=== PATIENT | female | born 1980 | race Caucasian/White ===

== ENCOUNTER 2017-10-20 12:50 | Inpatient (IN) | payer OTHER ==
[~2017-10-20] VITALS: Ht 160 cm; Wt 71.2 kg
[2017-10-20] MEDS ORDERED: BETAMETHASONE SOLUSPAN 6 MG/ML 5 ML VIAL IM ONE (13:15)
[2017-10-20] MEDS ORDERED: PREN1TAB80 PO (13:17)
[2017-10-20] MEDS ORDERED: CALC-1038 PO (13:18)
[2017-10-20] MEDS ORDERED: IRON18TA PO (13:18)
[2017-10-20 14:10] VITALS: BP 98/59
[2017-10-20] MEDS: RINGERS SOLUTION,LACTATED 1,000 ML IV SCH (14:55)
[2017-10-20 15:01] LABS: BASOPHILS % (AUTO) 0.8 % (0.0-2.0); EOSINOPHILS % (AUTO) 0.1 % (1.0-6.0); HEMATOCRIT 32.6 % (36-46); HEMOGLOBIN 11.4 g/dL (12.0-16.0); LYMPHOCYTES # (AUTO) 1.1 K/uL (1.0-4.8); LYMPHOCYTES % (AUTO) 18.9 % (22.0-44.0); MEAN CORPUSCULAR HEMOGLOBIN 31.1 pg (26.0-34.0); MEAN CORPUSCULAR HGB CONC 34.9 G/dL (31.0-37.0); MEAN CORPUSCULAR VOLUME 89 fL (80-100); MONOCYTES # (AUTO) 0.4 K/uL (0.1-1.0); MONOCYTES % (AUTO) 6.3 % (2.0-9.0); NEUTROPHILS # (AUTO) 4.2 K/uL (1.8-7.7); NEUTROPHILS % (AUTO) 73.9 % (40.0-70.0); PLATELET COUNT (AUTO)-OB 165 K/uL (150-450); RED BLOOD CELL COUNT(AUTO) 3.66 MIL/uL (4.00-5.20); RED CELL DISTRIBUTION WIDTH 13.9 % (11.5-14.5)
[2017-10-20 15:09] LABS: ANION GAP 11 mmol/L (8-16); CALCIUM, TOTAL 8.6 mg/dL (8.8-10.5); CARBON DIOXIDE 23 mmol/L (22-29); CHLORIDE 97 mmol/L (98-107); CREATININE 0.41 mg/dL (0.60-1.30); GLOMERULAR FILTR. RATE CALC > 60 mL/min (>60); GLUCOSE,RANDOM 87 mg/dL (70-110); POTASSIUM 3.8 mmol/L (3.5-5.1); SODIUM SERUM 131 mmol/L (136-145); UREA NITROGEN, BLOOD 5 mg/dL (7-18)
[2017-10-20 15:15] LABS: ALANINE AMINOTRANSFERASE 58 U/L (12-78); ALBUMIN 2.6 g/dL (3.4-5.0); ALKALINE PHOSPHATASE 115 U/L (46-116); ASPARTATE AMINOTRANSFERASE 42 U/L (15-37); BILIRUBIN,TOTAL 0.3 mg/dL (0.1-1.0); TOTAL PROTEIN, SERUM 6.3 g/dL (6.4-8.2); URIC ACID 3.4 mg/dL (2.6-7.2)
[2017-10-20] MEDS ORDERED: MAGNESIUM SULFATE 4 GM/WATER 100 ML IV ONE (16:00)
[2017-10-20] MEDS ORDERED: CALCIUM GLUCONATE 100 MG/ML 10 ML IVP PRN (16:15)
[2017-10-20] MEDS ORDERED: MAGNESIUM SULFATE 500 ML IV ONE (16:19)
[2017-10-20] MEDS ORDERED: MAGNESIUM SULFATE 500 ML IV SCH (16:30)
[2017-10-20] MEDS ORDERED: MAGNESIUM SULFATE 2 GM/WATER 50 ML IV ONE (16:30)
[2017-10-21] MEDS: RINGERS SOLUTION,LACTATED 1,000 ML IV SCH ×2 (03:25→11:22)
[2017-10-21] MEDS ORDERED: NIFEdipine 10 MG CAPSULE PO ONE (07:45)
[2017-10-21] MEDS ORDERED: BETAMETHASONE SOLUSPAN 6 MG/ML 5 ML VIAL IM ONE (08:40)
== END 2017-10-21 13:20 | disposition home or self-care (01) | DRG 781 ==
LOC: 4S 12:50 → OBSVTOIN 12:50
PROVIDERS: ADMIT Obstetrics & Gynecology; ATTEND Obstetrics & Gynecology
DX: O26.893 Other specified pregnancy related conditions, third trimester (principal); Z3A.34 34 weeks gestation of pregnancy; I95.9 Hypotension, unspecified
CPT/HCPCS: 84550; 96360; 96372; J0702; J3475; J7120

== ENCOUNTER 2019-12-11 17:15 | Observation (INO) | payer OTHER ==
[~2019-12-11] VITALS: Ht 157.5 cm; Wt 67.6 kg
[~2019-12-11 17:15] MED LIST: PREN1TAB80 PO
[2019-12-11] MEDS ORDERED: RINGERS SOLUTION,LACTATED 1,000 ML IV PRN (17:45)
[2019-12-11 18:19] VITALS: BP 100/57
== END 2019-12-11 20:20 | disposition home or self-care (01) ==
LOC: 4S 17:15
PROVIDERS: ADMIT Obstetrics & Gynecology; ATTEND Obstetrics & Gynecology
DX: O62.9 Abnormality of forces of labor, unspecified (principal); Z3A.36 36 weeks gestation of pregnancy
CPT/HCPCS: 59025; 76805; 96360; 96361; 99219

== ENCOUNTER 2019-12-28 10:05 | Inpatient (IN) | payer OTHER ==
[~2019-12-28] VITALS: Ht 165.1 cm; Wt 70.8 kg
[2019-12-28] MEDS ORDERED: RINGERS SOLUTION,LACTATED 1,000 ML IV PRN (10:51)
[2019-12-28] MEDS ORDERED: OXYTOCIN 30 UNITS/LACT RINGERS 500 ML IV ONE ×2 (10:51→17:08)
[2019-12-28] MEDS ORDERED: CITRIC ACID/SODIUM CITRATE 30 ML SOLUTION UDCUP PO PRN (11:00)
[2019-12-28] MEDS ORDERED: FentaNYL CITRATE-PF 100 MCG/2 ML VIAL IVP PRN (11:00)
[2019-12-28] MEDS ORDERED: MINERAL OIL 30 ML UDCUP VG ONE (11:00)
[2019-12-28] MEDS ORDERED: METHYLERGONOVINE MALEATE 0.2 MG/ML VIAL IM PRN (11:00)
[2019-12-28] MEDS ORDERED: LIDOCAINE/PF 1% 30 ML VIAL INJ PRN ×2 (11:00→17:15)
[2019-12-28] MEDS ORDERED: METOCLOPRAMIDE HCL 5 MG/ML 2 ML VIAL IVP PRN (11:00)
[2019-12-28] MEDS ORDERED: MAGN84TA PO (11:06)
[2019-12-28] MEDS ORDERED: OXYTOCIN 30 UNITS/LACT RINGERS 500 ML IV PRN (11:29)
[2019-12-28 11:37] VITALS: BP 106/66
[2019-12-28 11:43] LABS: BASOPHILS % (AUTO) 0.4 % (0.0-2.0); EOSINOPHILS % (AUTO) 0.1 % (1.0-6.0); HEMATOCRIT 30.5 % (36-46); HEMOGLOBIN 10.2 g/dL (12.0-16.0); LYMPHOCYTES # (AUTO) 1.1 K/uL (1.0-4.8); LYMPHOCYTES % (AUTO) 26.8 % (22.0-44.0); MEAN CORPUSCULAR HEMOGLOBIN 30.3 pg (26.0-34.0); MEAN CORPUSCULAR HGB CONC 33.5 G/dL (31.0-37.0); MEAN CORPUSCULAR VOLUME 91 fL (80-100); MONOCYTES # (AUTO) 0.4 K/uL (0.1-1.0); MONOCYTES % (AUTO) 8.3 % (2.0-9.0); NEUTROPHILS # (AUTO) 2.7 K/uL (1.8-7.7); NEUTROPHILS % (AUTO) 64.4 % (40.0-70.0); PLATELET COUNT (AUTO)-OB 113 K/uL (150-450); RED BLOOD CELL COUNT(AUTO) 3.37 MIL/uL (4.00-5.20); RED CELL DISTRIBUTION WIDTH 14.4 % (11.5-14.5)
[2019-12-28 12:12] LABS: COVID AG,FIA SOURCE NASAL SWAB
[2019-12-28] MEDS: RINGERS SOLUTION,LACTATED 1,000 ML IV SCH ×2 (13:18→14:38)
[2019-12-28] MEDS ORDERED: ROPIVACAINE HCL/PF 0.2% 100 ML ED ONE (15:10)
[2019-12-28] MEDS ORDERED: ROPIVACAINE HCL/PF 0.2% 100 ML ED PRN (15:28)
[2019-12-28] MEDS ORDERED: NALBUPHINE HCL 10 MG/ML VIAL IVP PRN (15:30)
[2019-12-28] MEDS ORDERED: DiphenhydrAMINE HCL 50 MG/ML VIAL IVP PRN (15:30)
[2019-12-28] MEDS ORDERED: ONDANSETRON HCL 4 MG/2 ML VIAL IVP PRN (15:30)
[2019-12-28] MEDS ORDERED: GLYCERIN/WITCH HAZEL LEAF 40 PADS JAR TP PRN (17:15)
[2019-12-28] MEDS ORDERED: OxyCODONE HCL/ACETAMINOPHEN 5-325 MG TABLET PO PRN ×2 (17:15)
[2019-12-28] MEDS ORDERED: BENZOCAINE 20%/MENTHOL 56 GM SPRAY CANISTER TP PRN (17:15)
[2019-12-28] MEDS ORDERED: LANOLIN 7 GM OINTMENT TP PRN (17:15)
[2019-12-28] MEDS ORDERED: OXYGEN THERAPY IH SCH (20:00)
[2019-12-28] MEDS: IBUPROFEN 800 MG TABLET PO PRN (22:34)
[2019-12-28] MEDS: MAGNESIUM HYDROXIDE SUSPENSION 30 ML UDCUP PO PRN (22:38)
[2019-12-29 05:34] LABS: BASOPHILS % (AUTO) 0.7 % (0.0-2.0); EOSINOPHILS % (AUTO) 0.2 % (1.0-6.0); HEMATOCRIT 28.5 % (36-46); HEMOGLOBIN 9.9 g/dL (12.0-16.0); LYMPHOCYTES # (AUTO) 1.5 K/uL (1.0-4.8); LYMPHOCYTES % (AUTO) 24.3 % (22.0-44.0); MEAN CORPUSCULAR HEMOGLOBIN 31.3 pg (26.0-34.0); MEAN CORPUSCULAR HGB CONC 34.6 G/dL (31.0-37.0); MEAN CORPUSCULAR VOLUME 90 fL (80-100); MONOCYTES # (AUTO) 0.4 K/uL (0.1-1.0); MONOCYTES % (AUTO) 6.6 % (2.0-9.0); NEUTROPHILS # (AUTO) 4.3 K/uL (1.8-7.7); NEUTROPHILS % (AUTO) 68.2 % (40.0-70.0); PLATELET COUNT (AUTO)-OB 111 K/uL (150-450); RED BLOOD CELL COUNT(AUTO) 3.15 MIL/uL (4.00-5.20); RED CELL DISTRIBUTION WIDTH 14.1 % (11.5-14.5)
[2019-12-29] MEDS: IBUPROFEN 800 MG TABLET PO PRN ×2 (05:51→16:54)
[2019-12-29] MEDS ORDERED: ACET-2865 PO (15:55)
[2019-12-29] MEDS ORDERED: IBUP-2070 PO (15:55)
[2019-12-29] MEDS ORDERED: DOCU-275 PO (15:55)
[2019-12-29] MEDS: MAGNESIUM HYDROXIDE SUSPENSION 30 ML UDCUP PO PRN (16:54)
== END 2019-12-29 17:30 | disposition home or self-care (01) | DRG 807 ==
LOC: 4S 10:05 → OBSVTOIN 10:05 → PREOBSVTOIN 01-08 10:20
PROVIDERS: ADMIT Obstetrics & Gynecology; ATTEND Obstetrics & Gynecology
PROC: 10E0XZZ Delivery of Products of Conception, External Approach (ICD-10-PCS; principal; 2019-12-28)
PROC: 10907ZC Drainage of Amniotic Fluid, Therapeutic from Products of Conception, Via Natural or Artificial Opening (ICD-10-PCS; 2019-12-28)
PROC: 0HQ9XZZ Repair Perineum Skin, External Approach (ICD-10-PCS; 2019-12-28)
PROC: 3E0R3BZ Introduction of Anesthetic Agent into Spinal Canal, Percutaneous Approach (ICD-10-PCS; 2019-12-28)
PROC: 00HU33Z Insertion of Infusion Device into Spinal Canal, Percutaneous Approach (ICD-10-PCS; 2019-12-28)
DX: O69.81X0 Labor and delivery complicated by cord around neck, without compression, not applicable or unspecified (principal); Z37.0 Single live birth; O70.0 First degree perineal laceration during delivery; Z20.828 Contact with and (suspected) exposure to other viral communicable diseases; Z3A.39 39 weeks gestation of pregnancy
CPT/HCPCS: 86850; 86900; 86901; 87426; J2590; J2795; J7120